=== PATIENT | male | born 1940 | race Caucasian/White ===

== ENCOUNTER 2020-08-01 18:36 | Emergency (ER) | payer MEDICARE ==
[2020-08-01] MEDS ORDERED: Oxymetazoline 0.05% Nasal Spray 30 ML Bottle NAS ONE (18:41)
--- NOTE | 2020-08-01 19:04 | EDM.PDOC ---
ED HPI GENERAL MEDICAL PROBLEM - General Chief Complaint: ENT Problem Stated Complaint: BLEEDING FROM EYE AND NOSE Time Seen by Provider: 08/01/20 18:50 Source of Information: Reports: Patient History Limitations: Reports: Other (limited records) - History of Present Illness INITIAL COMMENTS - FREE TEXT/NARRATIVE: 80 yo male here with intermittent initially and now heavy L sided nose bleed that began on Friday. Was due to have an INR yesterday, but cancelled due to his nose bleed. Has not taken his warfarin or his BP med today. Has not discussed with his primary. Onset was spontaneous. Has chronic afib. Has not had his BP checked in some time, not sure when it was last measured? Onset: Gradual Onset Date: 07/29/20 Duration: Getting Worse, Waxing/Waning Location: Reports: Face (L nares) Quality: Reports: Other (no pain) Severity: Severe Improves with: Reports: None Worsens with: Reports: Other (uncertain) Context: Reports: Other (See HPI) Associated Symptoms: Reports: No Other Symptoms Treatments DIRECTOR OF FIRST IMPRESSIONS: Reports: Dressing(s), Other (see below) (none) Left Nose Pain Score (Numeric/FACES): 6 - Related Data Allergies Allergy/AdvReac Type Severity Reaction Status Date / Time Sulfa (Sulfonamide Allergy Other Verified 08/01/20 19:13 Antibiotics) Home Meds: Home Meds Aspirin [Ecotrin EC] 81 mg PO DAILY 08/01/20 [History] Cholecalciferol (Vitamin D3) [Vitamin D3] 1,000 unit PO DAILY 08/01/20 [History] Cider Vinegar [Apple Cider Vinegar] 600 mg PO DAILY 08/01/20 [History] Cinnamon Bark [Cinnamon] 2 cap PO DAILY 08/01/20 [History] Dutasteride [Avodart] 0.5 mg PO DAILY 08/01/20 [History] Glucosam/Chond/Collagen/Hyalur [Glucosamine Chondroitin] 1 each PO BID 08/01/20 [History] Magnesium 400 mg PO DAILY 08/01/20 [History] Melatonin 5 mg PO BEDTIME 08/01/20 [History] Oxybutynin 5 mg PO DAILY 08/01/20 [History] amLODIPine [Norvasc] 10 mg PO DAILY 08/01/20 [History] atorvaSTATin [Lipitor] 20 mg PO BEDTIME 08/01/20 [History] diphenhydrAMINE [Benadryl] 50 mg PO BEDTIME PRN 08/01/20 [History] lisinopriL [Lisinopril] 40 mg PO DAILY 08/01/20 [History] metFORMIN [Glucophage XR] 750 mg PO ASDIRECTED 08/01/20 [History] ED ROS ENT - Review of Systems Review Of Systems: See Below Constitutional: Reports: No Symptoms HEENT: Reports: Nosebleed Respiratory: Reports: No Symptoms Cardiovascular: Reports: No Symptoms GI/Abdominal: Reports: No Symptoms Musculoskeletal: Reports: No Symptoms Skin: Reports: No Symptoms Neurological: Reports: No Symptoms ED EXAM, ENT - Physical Exam Exam: See Below Exam Limited By: No Limitations General Appearance: Alert, WD/WN, Mild Distress Eye Exam: Bilateral Eye: Normal Inspection Ears: Normal External Exam, Normal Canal, Hearing Loss Nose: Active Bleeding (L nares and oropharynx). No: Normal Inspection, No Blood Mouth/Throat: Other (active bleeding back of throat) Head: Atraumatic, Normocephalic. No: Scalp Lacerations Neck: Normal Inspection Respiratory/Chest: No Respiratory Distress, Lungs Clear, Normal Breath Sounds, No Accessory Muscle Use Cardiovascular: Regular Rate, Rhythm, No Edema Extremities: Normal Inspection Neurological: Alert, Oriented, CN II-XII Intact, Normal Cognition Psychiatric: Normal Affect, Normal Mood Skin: Warm, Dry, Intact, Normal Color, No Rash. No: Ecchymosis ED ENT PROCEDURES - Epistaxis Procedure Indication: Epistaxis, Uncontrolled Recent anticoagulants/antiplatlets: Yes Recent septal/nasal surgery: No Site of bleeding: Left Nare, Anterior, Posterior Clearing of clots: Patient Blew Nose Topical Meds: Phenylephrine Ice pack to area: No Anterior Packing: Inflatable Nasal Tampon (Rhinorocket) Posterior packing: Long Inflatable Nasal Tampon Course - Vital Signs Last Recorded V/S: Last Vital Signs Temp 36.4 C 08/01/20 19:21 Pulse 88 08/01/20 19:21 Resp 16 08/01/20 19:21 BP 149/79 H 08/01/20 19:45 Pulse Ox 98 08/01/20 19:21 - Orders/Labs/Meds Labs: Laboratory Tests 08/01/20 Range/Units 18:51 PT 17.7 H (9.5-12.0) sec INR 1.64 H (0.80-1.20) Meds: Medications Discontinued Medications Generic Name Dose Route Start Last Admin Trade Name Robert PRN Reason Stop Dose Admin Amlodipine Besylate 10 mg 08/01/20 19:16 08/01/20 19:27 Norvasc PO 08/01/20 19:17 10 mg ONETIME ONE Administration Hydralazine HCl 25 mg 08/01/20 19:41 08/01/20 20:21 Apresoline PO 08/01/20 19:42 Not Given NOW STA Hydralazine HCl 10 mg 08/01/20 19:45 08/01/20 19:45 Apresoline PO 08/01/20 19:46 Not Given NOW STA Lisinopril 40 mg 08/01/20 19:17 08/01/20 19:28 Prinivil PO 08/01/20 19:18 40 mg ONETIME ONE Administration Oxymetazoline HCl 2 ml 08/01/20 18:41 08/01/20 18:50 Nasal Decongestant [place] TOMA 08/01/20 18:42 2 ml ONETIME ONE Administration Departure - Departure Time of Disposition: 20:26 Disposition: Home, Self-Care 01 Condition: Fair Clinical Impression: Epistaxis, HTN, goal below 140/80, Subtherapeutic international normalized ratio (INR) - Discharge Information *PRESCRIPTION DRUG MONITORING PROGRAM REVIEWED*: Not Applicable *COPY OF PRESCRIPTION DRUG MONITORING REPORT IN PATIENT OMAR: Not Applicable Referrals: Basilio Fuentes MD [Primary Care Provider] - Forms: ED Department Discharge Additional Instructions: Leave your Rhinorocket in place for 2-3 days. Call your provider and see if he is comfortable removing it in the clinic. You should have a BP check at that time. Your INR today was a bit low at 1.64, share this with your provider. Return here for problems in the interim. Continue all your meds for now. Sepsis Event Note (ED) - Focused Exam Vital Signs: Vital Signs Temp Pulse Resp BP BP Pulse Ox 08/01/20 19:45 149/79 H 08/01/20 19:28 206/84 H 08/01/20 19:27 196/82 H 08/01/20 19:21 36.4 C 88 16 206/84 H 98
[2020-08-01] MEDS ORDERED: amLODIPine 5 MG Tab PO ONE (19:16)
[2020-08-01] MEDS ORDERED: Lisinopril 10 MG Tab PO ONE (19:17)
[2020-08-01] MEDS ORDERED: hydrALAZINE 25 MG Tab PO STA (19:41)
[2020-08-01] MEDS ORDERED: hydrALAZINE 10 MG Tab PO STA (19:45)
== END 2020-08-01 20:40 | disposition home or self-care (01) ==
LOC: JP.ED 18:36
DX: R04.0 Epistaxis (principal); I10 Essential (primary) hypertension; R79.1 Abnormal coagulation profile; Z88.2 Allergy status to sulfonamides; Z79.82 Long term (current) use of aspirin; Z79.899 Other long term (current) drug therapy
CPT/HCPCS: 30903; 36415; 85610; 99283; A9270

== ENCOUNTER 2022-05-23 13:33 | Inpatient (IN) | payer MEDICARE ==
[2022-05-23 17:07] LABS: ESTIMATED GFR 87 mL/min (>60)
[2022-05-23] MEDS ORDERED: Melatonin 3 MG Tab PO PRN (19:06)
[2022-05-23] MEDS ORDERED: Ondansetron 4 MG Tab.DIS PO PRN (19:06)
[2022-05-23] MEDS ORDERED: Potassium Chloride 20 MEQ Tab.ER PO ONE (19:06)
[2022-05-23] MEDS ORDERED: Albuterol 0.083% 2.5 MG/3 ML Neb Soln NEB PRN (19:06)
[2022-05-23] MEDS ORDERED: Ondansetron 4 MG/2 ML SDV IV PRN (19:06)
[2022-05-23] MEDS: HYDROmorphone 1 MG/ML Syringe IVPUSH PRN (19:31)
[2022-05-23] MEDS: Acetaminophen 325 MG Tab PO PRN (19:31)
[2022-05-23] MEDS: oxyCODONE 5 MG Tab PO PRN (20:33)
[2022-05-23] MEDS: atorvaSTATin 20 MG Tab PO SCH (20:33)
[2022-05-23] MEDS: Sodium Chloride 0.9% 1,000 ML IV SCH (21:00)
[2022-05-23] MEDS ORDERED: 50% Dextrose in Water 50 ML Syringe IVPUSH PRN (21:50)
[2022-05-23] MEDS ORDERED: Glucagon,Human Recombinant 1 MG Vial IM PRN (21:50)
[2022-05-23] MEDS: Insulin Lispro 100 Unit/ML 3 ML KwikPen SUBCUT SCH (23:19)
[2022-05-24] MEDS: Acetaminophen 325 MG Tab PO PRN (03:13)
[2022-05-24] MEDS: Sodium Chloride 0.9% 1,000 ML IV SCH ×2 (04:57→17:39)
[2022-05-24] MEDS ORDERED: Bupivacaine 0.5%/EPINEPHrine 1:200,000 50 ML MDV ONE (07:07)
[2022-05-24] MEDS ORDERED: Midazolam 1 MG/ML 2 ML SDV ONE (07:30)
[2022-05-24] MEDS ORDERED: Propofol 200 MG/20 ML SDV ONE (07:30)
[2022-05-24] MEDS ORDERED: fentaNYL 100 MCG/2 ML SDV ONE (07:30)
[2022-05-24] MEDS ORDERED: ceFAZolin 2 GM in Premix Bag 1 BAG IV ONE (07:30)
[2022-05-24] MEDS: Insulin Lispro 100 Unit/ML 3 ML KwikPen SUBCUT SCH ×4 (07:40→21:33)
[2022-05-24] MEDS ORDERED: ePHEDrine 50 MG/ML SDV ONE (08:40)
[2022-05-24] MEDS ORDERED: Lactated Ringers 1,000 ML ONE (08:59)
[2022-05-24] MEDS: HYDROmorphone 1 MG/ML Syringe IVPUSH PRN (09:59)
[2022-05-24] MEDS: Acetaminophen 325 MG Tab PO SCH ×3 (10:19→21:35)
[2022-05-24] MEDS: Lisinopril 20 MG Tab PO SCH (10:20)
[2022-05-24] MEDS: amLODIPine 5 MG Tab PO SCH (10:21)
[2022-05-24] MEDS: Dutasteride 0.5 MG Cap PO SCH (10:22)
[2022-05-24] MEDS: Aspirin 81 MG Tab.EC PO SCH (10:22)
[2022-05-24] MEDS: oxyCODONE 5 MG Tab PO PRN ×2 (11:06→15:36)
[2022-05-24] MEDS: metFORMIN 500 MG Tab PO SCH ×2 (11:07→17:13)
[2022-05-24] MEDS: Cyanocobalamin (Vitamin B12) 1,000 MCG Tab PO SCH (11:07)
[2022-05-24] MEDS ORDERED: HYDROmorphone 0.5 MG/0.5 ML Syringe IVPUSH PRN (11:47)
[2022-05-24] MEDS: traMADol 50 MG Tab PO PRN (12:00)
[2022-05-24] MEDS ORDERED: Ketorolac 30 MG/ML SDV IVPUSH ONE (13:00)
[2022-05-24] MEDS: ceFAZolin 1 GM in Premix Bag 1 BAG IV SCH (15:50)
[2022-05-24] MEDS: atorvaSTATin 20 MG Tab PO SCH (21:35)
[2022-05-25] MEDS: ceFAZolin 1 GM in Premix Bag 1 BAG IV SCH ×2 (00:40→07:30)
[2022-05-25] MEDS: Sodium Chloride 0.9% 1,000 ML IV SCH (03:31)
[2022-05-25] MEDS: Acetaminophen 325 MG Tab PO SCH ×5 (03:33→21:06)
[2022-05-25] MEDS: oxyCODONE 5 MG Tab PO PRN ×2 (07:10→11:28)
[2022-05-25] MEDS: metFORMIN 500 MG Tab PO SCH ×2 (07:12→17:09)
[2022-05-25] MEDS: amLODIPine 5 MG Tab PO SCH (08:51)
[2022-05-25] MEDS: Insulin Lispro 100 Unit/ML 3 ML KwikPen SUBCUT SCH (08:51)
[2022-05-25] MEDS: Aspirin 81 MG Tab.EC PO SCH (08:51)
[2022-05-25] MEDS: Lisinopril 20 MG Tab PO SCH (08:52)
[2022-05-25] MEDS: Dutasteride 0.5 MG Cap PO SCH (08:52)
[2022-05-25] MEDS: Cyanocobalamin (Vitamin B12) 1,000 MCG Tab PO SCH (08:52)
[2022-05-25] MEDS ORDERED: Warfarin 5 MG Tab PO ONE (13:00)
[2022-05-25] MEDS: traMADol 50 MG Tab PO PRN ×2 (17:08→21:02)
[2022-05-25] MEDS: atorvaSTATin 20 MG Tab PO SCH ×2 (21:01→21:06)
[2022-05-26] MEDS: traMADol 50 MG Tab PO PRN ×2 (03:46→13:32)
[2022-05-26] MEDS: Acetaminophen 325 MG Tab PO SCH ×5 (04:04→21:53)
[2022-05-26] MEDS: oxyCODONE 5 MG Tab PO PRN ×3 (07:42→20:28)
[2022-05-26] MEDS: metFORMIN 500 MG Tab PO SCH ×2 (08:39→16:30)
[2022-05-26] MEDS: Aspirin 81 MG Tab.EC PO SCH (08:39)
[2022-05-26] MEDS: amLODIPine 5 MG Tab PO SCH (08:40)
[2022-05-26] MEDS: Dutasteride 0.5 MG Cap PO SCH (08:40)
[2022-05-26] MEDS: Lisinopril 20 MG Tab PO SCH (08:40)
[2022-05-26] MEDS: Cyanocobalamin (Vitamin B12) 1,000 MCG Tab PO SCH (08:40)
[2022-05-26] MEDS: Magnesium Hydroxide 400 MG/5 ML Susp 30 ML Cup PO PRN (12:01)
[2022-05-26] MEDS: Warfarin 5 MG Tab PO SCH (13:32)
[2022-05-26] MEDS ORDERED: Bisacodyl 5 MG Tab PO ONE (16:27)
[2022-05-26] MEDS: atorvaSTATin 20 MG Tab PO SCH (20:29)
[2022-05-27] MEDS: Acetaminophen 325 MG Tab PO SCH ×4 (04:59→21:36)
[2022-05-27] MEDS: traMADol 50 MG Tab PO PRN ×4 (04:59→19:18)
[2022-05-27] MEDS: metFORMIN 500 MG Tab PO SCH ×2 (08:09→16:23)
[2022-05-27] MEDS: Magnesium Hydroxide 400 MG/5 ML Susp 30 ML Cup PO PRN (08:14)
[2022-05-27] MEDS: Dutasteride 0.5 MG Cap PO SCH (09:09)
[2022-05-27] MEDS: Aspirin 81 MG Tab.EC PO SCH (09:09)
[2022-05-27] MEDS: Lisinopril 20 MG Tab PO SCH (09:11)
[2022-05-27] MEDS: amLODIPine 5 MG Tab PO SCH (09:12)
[2022-05-27] MEDS: Cyanocobalamin (Vitamin B12) 1,000 MCG Tab PO SCH (09:13)
[2022-05-27] MEDS: Warfarin 5 MG Tab PO SCH (13:11)
[2022-05-27] MEDS ORDERED: Bisacodyl 10 MG Supp RECTAL PRN (16:41)
[2022-05-27] MEDS ORDERED: Bisacodyl 10 MG Supp RECTAL ONE (19:01)
[2022-05-27] MEDS ORDERED: Sodium Phosphate,Monobasic/Sodium Phosphate,Dibasic Enema 133 ML Bottle RECTAL PRN (19:01)
[2022-05-27] MEDS: atorvaSTATin 20 MG Tab PO SCH (20:25)
[2022-05-28] MEDS: traMADol 50 MG Tab PO PRN (02:42)
[2022-05-28] MEDS: Acetaminophen 325 MG Tab PO SCH ×2 (03:23→09:35)
[2022-05-28] MEDS: Aspirin 81 MG Tab.EC PO SCH (08:15)
[2022-05-28] MEDS: Dutasteride 0.5 MG Cap PO SCH (08:15)
[2022-05-28] MEDS: metFORMIN 500 MG Tab PO SCH (08:15)
[2022-05-28] MEDS: amLODIPine 5 MG Tab PO SCH (08:15)
[2022-05-28] MEDS: Lisinopril 20 MG Tab PO SCH (08:16)
[2022-05-28] MEDS: Cyanocobalamin (Vitamin B12) 1,000 MCG Tab PO SCH (08:16)
[2022-05-28] MEDS ORDERED: Warfarin 5 MG Tab PO SCH (13:00)
== END 2022-05-28 13:11 | DRG 481 ==
LOC: JP.ED 13:33 → JP.MS 18:33
PROVIDERS: ADMIT Internal Medicine; ATTEND Hospitalist
PROC: 0QS634Z Reposition Right Upper Femur with Internal Fixation Device, Percutaneous Approach (ICD-10-PCS; principal; 2022-05-24)
DX: S72.141A Displaced intertrochanteric fracture of right femur, initial encounter for closed fracture (principal); W19.XXXA Unspecified fall, initial encounter; I48.20 Chronic atrial fibrillation, unspecified; E11.42 Type 2 diabetes mellitus with diabetic polyneuropathy; I10 Essential (primary) hypertension; N40.0 Benign prostatic hyperplasia without lower urinary tract symptoms; E11.21 Type 2 diabetes mellitus with diabetic nephropathy; E78.00 Pure hypercholesterolemia, unspecified; Z20.822 Contact with and (suspected) exposure to COVID-19; Z79.84 Long term (current) use of oral hypoglycemic drugs; Z79.01 Long term (current) use of anticoagulants; Z88.2 Allergy status to sulfonamides; Z79.82 Long term (current) use of aspirin; Z79.899 Other long term (current) drug therapy; Z90.49 Acquired absence of other specified parts of digestive tract
CPT/HCPCS: 36415; 70450 ×2; 72192 ×2; 73000 ×2; 80053; 85025; 85610; 99284; U0002; 70551; 70551-26; 76000; 80048; 82607; 82746; 82947; 84439; 84443; 85018; 85027; 93005; 93010; 97110-GP; 97162-GP; 97165-GO; 97530-GP; 97535-GP; 99222; 99232; 99238; A9270-GY; C1713; C1776; J0690; J1170; J1815; J1885; J2250; J2405; J2704; J3010; J3490; J7030; J7120

== ENCOUNTER 2022-08-02 02:54 | Emergency (ER) | payer MEDICARE ==
[2022-08-02] MEDS ORDERED: Bacitracin Oint 1 GM U/D Packet TOP ONE (03:00)
[2022-08-02] MEDS ORDERED: Diphtheria,Pertussis(Acell),Tetanus Vaccine 0.5 ML Syringe IM ONE (03:26)
== END 2022-08-02 04:30 | disposition home or self-care (01) ==
LOC: JP.ED 02:54
DX: S61.216A Laceration without foreign body of right little finger without damage to nail, initial encounter (principal); I10 Essential (primary) hypertension; E78.00 Pure hypercholesterolemia, unspecified; E11.9 Type 2 diabetes mellitus without complications; Z79.899 Other long term (current) drug therapy; Z23 Encounter for immunization; W26.8XXA Contact with other sharp object(s), not elsewhere classified, initial encounter
CPT/HCPCS: 12002; 90471; 90715; 99283

== ENCOUNTER 2022-08-02 10:24 | Emergency (ER) | payer MEDICARE | END 2022-08-02 12:22 | disposition home or self-care (01) | LOC: JP.ED 10:24 | DX: S40.012A Contusion of left shoulder, initial encounter (principal); M19.012 Primary osteoarthritis, left shoulder; E78.00 Pure hypercholesterolemia, unspecified; I10 Essential (primary) hypertension; E11.9 Type 2 diabetes mellitus without complications; Z88.2 Allergy status to sulfonamides; Z79.82 Long term (current) use of aspirin; Z79.899 Other long term (current) drug therapy; Z79.01 Long term (current) use of anticoagulants; Z79.84 Long term (current) use of oral hypoglycemic drugs; Z90.49 Acquired absence of other specified parts of digestive tract; W19.XXXA Unspecified fall, initial encounter | CPT/HCPCS: 73030-26-LT; 73030-LT; 99283 ==